=== PATIENT | male | born 1975 | race Caucasian/White ===

== ENCOUNTER → 2018-02-18 | Outpatient (CLI) | payer MEDICAID ==
--- NOTE | 2018-02-19 09:56 | EEG PRO FEE REPORT ---
EEG INTERPRETATION PATIENT NAME: SHAILESH HOUSTON ROOM#: ORDER#: [id number] DATE OF STUDY: 02/18/2018 : 1975 REFERRING MD: SHANTAL CARLOS M.D. MEDICATIONS: Hydrocodone/acetaminophen, Levetiracetam, aspirin, potassium, Tamsulosin, Trazodone, Amiodarone, Furosemide, Trintellex, Bupropion, Aripiprazole, Gabapentin, Hydroxizine, Movantik History This is a 42 year old right handed man with history of asthma, pacemaker, cardiac stents, COPD with an episode of passing out. This EEG was requested for possible seizure. EEG Interpretation This EEG was recorded in the awake and drowsy states. The awake EEG is characterized by a well organized background with a well developed and reactive posterior dominant rhythm of 8 Hz. The remainder of the background consisted of mostly theta with rare delta. Drowsiness is characterized by slowing of the background rhythms. Photic stimulation resulted in a good driving response. There were no epileptiform abnormalities. The EKG showed a regular rhythm of approximately 50 BPM. EEG Classification 1. Generalized background slowing EEG Impression This EEG is mildly abnormal for age. The posterior dominant rhythm is below limit for age and is consistent with mild diffuse cerebral dysfunction. The heart rate was at the lower limit of normal and may require further investigation. INTERPRETING PHYSICIAN: PRITI MURPHY M.D. /: MTEFFT TT: [id number] ID: [id number] /: [id number] TD: [id number] JOB: [id number] cc:Gracy MCRAE M.D. > MTDD
== END ==
LOC: NEURO 12:08
PROVIDERS: ATTEND Pediatrics
DX: R56.9 Unspecified convulsions (principal); Z87.891 Personal history of nicotine dependence; Z79.899 Other long term (current) drug therapy
CPT/HCPCS: 95819